=== PATIENT | female | born 1935 | race Caucasian/White ===

== ENCOUNTER 2016-09-01 15:19 | Emergency (ER) | payer OTHER ==
[~2016-09-01] VITALS: Ht 154.9 cm; Wt 70.0 kg
[~2016-09-01 15:19] MED LIST: ASACOL400 MG PO; ASPIR 8181 M1 PO; COLACE100 MG PO; FLONASE16 GM NS; HYDROCODON-ACE1 EAC7 PO; K-DUR20 MEQ PO; LEVOFLOXACIN250 MG PO; LIPITOR5 MG PO; LOPRESSOR50 MG PO; NORVASC5 MG PO; SENNA8.6 M1 PO; SYNTHROID100 MCG PO; SYNTHROID75 MCG PO; SYNTHROID88 MCG PO; VOLTAREN 1% GE100 GM TP
[2016-09-01 17:12] VITALS: BP 135/79
== END 2016-09-01 17:22 | disposition home or self-care (01) ==
LOC: EME 15:19
DX: S62.601A Fracture of unspecified phalanx of left index finger, initial encounter for closed fracture (principal); S00.81XA Abrasion of other part of head, initial encounter; E11.9 Type 2 diabetes mellitus without complications; W18.30XA Fall on same level, unspecified, initial encounter; E78.5 Hyperlipidemia, unspecified; I10 Essential (primary) hypertension; Z86.73 Personal history of transient ischemic attack (TIA), and cerebral infarction without residual deficits; I25.2 Old myocardial infarction
CPT/HCPCS: 70450; 73140; 99281; 99283

== ENCOUNTER 2016-11-09 19:12 | Emergency (ER) | payer OTHER ==
[~2016-11-09] VITALS: Ht 149.9 cm; Wt 69.5 kg
[2016-11-09 20:33] LABS: EOSINOPHIL (%) 0 % (0-5); HEMATOCRIT 45.2 % (36.0-46.0); IMMATURE GRANULOCYTE (%) 0.2 % (0.0-0.7); INSTRUMENT ABS NEUTROPHIL CT 4.4 K/uL; LYMPHOCYTE COUNT 1.2 K/uL (1.0-2.8); MCH 28.2 PG (29.0-34.0); MCHC 33.2 G/DL (30.0-36.0); MCV 85.1 FL (83-99); MEAN PLAT.VOLUME 10.9 uM^3 (9.5-12.4); MONOCYTE COUNT 0.6 K/uL (0-0.8); NEUTROPHIL (%) 71.4 % (45-76); NEUTROPHIL COUNT 4.4 K/uL (1.8-6.4); PLATELET COUNT 178 K/uL (156-360); RBC DIS.WIDTH-CV 13.2 % (11.8-14.6); RBC DIS.WIDTH-SD 40.8 % (39-53); RED BLOOD COUNT 5.31 M/uL (3.80-5.20); WHITE BLOOD COUNT 6.1 K/uL (4.1-10.2)
[2016-11-09 20:42] LABS: CHLORIDE 106 mEq/L (99-109); POTASSIUM 3.8 mEq/L (3.7-5.4); SODIUM 140 mEq/L (136-147)
[2016-11-09 20:44] LABS: GLUCOSE 144 mg/dL (70-99)
[2016-11-09 20:45] LABS: ANION GAP 12 MEQ/L (2-14)
[2016-11-09 20:48] LABS: GFR ESTIMATE (CALCULATED) > 59 mL/min/
[2016-11-09 20:49] LABS: UREA NITROGEN (BUN) 12 mg/dL (9-23)
[2016-11-09 20:54] LABS: TROP-I INTERPRETATION NEGATIVE; TROPONIN-I < 0.01 ng/mL (0.0-0.30)
[2016-11-09 23:37] VITALS: BP 132/63
== END 2016-11-09 23:41 | disposition home or self-care (01) ==
LOC: EME → EDBD 19:12 → EME 19:12
PROVIDERS: Emergency Medicine
PROC: 0HQ0XZZ Repair Scalp Skin, External Approach (ICD-10-PCS; principal; 2016-11-09)
DX: S01.01XA Laceration without foreign body of scalp, initial encounter (principal); M79.645 Pain in left finger(s); W18.39XA Other fall on same level, initial encounter; E11.9 Type 2 diabetes mellitus without complications; E87.5 Hyperkalemia; I10 Essential (primary) hypertension; I25.2 Old myocardial infarction; Z86.73 Personal history of transient ischemic attack (TIA), and cerebral infarction without residual deficits; E03.9 Hypothyroidism, unspecified
CPT/HCPCS: 70450; 73140; 80048; 84484; 85025; 93005; 99281; 99285; J7030